=== PATIENT | female | born 1985 | race Caucasian/White ===

== ENCOUNTER 2022-05-01 13:30 | Outpatient (CLI) | payer OTHER, SELFPAY ==
[2022-05-01 14:08] LABS: Cholesterol* 210 mg/dL (90-199); HDL Cholesterol* 41 mg/dL (>=50); LDL Cholesterol Calculated 136 mg/dL (<100); Triglycerides* 164 mg/dL (40-149)
== END 2022-05-01 13:31 | disposition home or self-care (01) ==
PROVIDERS: PCP Internal Medicine; Visit Provider Internal Medicine
DX: E78.5 Hyperlipidemia, unspecified (principal)
CPT/HCPCS: 80061

== ENCOUNTER 2023-05-03 08:18 | Outpatient (REF) | payer BC, SELFPAY | END 2023-05-03 08:19 | disposition home or self-care (01) | LOC: NFLDREF 08:18 | PROVIDERS: PCP Internal Medicine; Referring Provider Internal Medicine; Visit Provider Internal Medicine | DX: E78.5 Hyperlipidemia, unspecified (principal) | CPT/HCPCS: 80061 ==

== ENCOUNTER 2024-02-14 12:25 | Outpatient (CLI) | payer BC, SELFPAY ==
--- OUTSIDE RECORDS SUMMARY | 2024-02-14 12:31 | XMS_ITS | Clinical Summary ---
Author Organization [facility] Address [place], [place] [address] Care Team Providers Care Counter Hand Name Role Phone Unavailable Primary Care Provider Unavailabl e Social History Tobacco Use Types Packs/Day Years Used Date Smoking Tobacco: Never Assessed Sex and Gender Information Value Date Recorded Sex Assigned at Not on file Gender Identity Not on file Sexual Orientation Not on file Plan of Treatment Health Maintenance Due Date Last Done Comments Tdap 1998 Depression screening for age 12+ 1999 HIV for age 15-65 2002 BMI (ht and wt on same day) for age 18+ 2005 Hepatitis C screening for age 18-79 2005 Tetanus booster 2007 COVID-19 vaccine series ( season) 2023 12/17/2021, 12/18/2020 Influenza for age 9-49 11/21/2023 Pap test for age 21-65 06/12/2025 , 06/12/2022, 06/03/2017, Additional history exists Pneumococcal series for age 6-64 Aged Out No longer eligible based on patient's age to complete this topic Procedures Procedure Name Priority Date/Time Associated Diagnosis Comments HPV HIGH RISK Routine 06/12/2022 1:15 PM CDT from Last 3 Months or Most Recently Relevant to Health Maintenance Results * HPV HIGH RISK (06/12/2022 1:15 PM CDT) TYPE 16 Negative Negative 06/19/2022 10:10 AM CDT [facility] TYPE 18 Negative Negative 06/19/2022 10:10 AM CDT [facility] OTHER HIGH RISK TYPES Negative Negative 06/19/2022 10:10 AM CDT [facility] Other (Cervical) 06/12/2022 1:15 PM CDT 06/16/2022 1:32 PM CDT Narrative [facility] - 06/19/2022 10:10 AM CDT HPV types 16, 18, 31, 33, 35, 39, 45, 51, 52, 56, 58, 59, 66 and 68 DNA were undetectable or below the pre-set threshold. Methodology: Tosha Macy 4800 HPV Test Jacqueline Cantu MD [facility] [address] [place] [address], [place] from Last 3 Months or Most Recently Relevant to Health Maintenance
== END 2024-02-14 12:26 | disposition home or self-care (01) ==
PROVIDERS: PCP Internal Medicine; Visit Provider Physician Assistant Medical
DX: N64.4 Mastodynia (principal); E78.5 Hyperlipidemia, unspecified; E66.9 Obesity, unspecified; F41.1 Generalized anxiety disorder
CPT/HCPCS: 84146; 84443

== ENCOUNTER 2024-05-15 07:50 | Outpatient (CLI) | payer BC, SELFPAY | END 2024-05-15 07:51 | disposition home or self-care (01) | LOC: NFLDREF 05-17 05:17 | PROVIDERS: PCP Internal Medicine; Referring Provider Internal Medicine; Visit Provider Internal Medicine | DX: E78.5 Hyperlipidemia, unspecified (principal); Z82.49 Family history of ischemic heart disease and other diseases of the circulatory system | CPT/HCPCS: 80061; 83695 ==